=== PATIENT | female | born 1995 | race Hispanic/Latino ===

== ENCOUNTER 2023-03-22 23:40 | Emergency (ER) | payer MEDICAID ==
[~2023-03-22] VITALS: Ht 152.4 cm; Wt 83.0 kg
[2023-03-23] MEDS ORDERED: SOLU-MEDROL 125MG VIAL IM ONE (02:00)
[2023-03-23] MEDS ORDERED: DiphenhydrAMINE HCL 50 MG/ML VIAL IM ONE (02:00)
[2023-03-23] MEDS ORDERED: DIPH50 PO (02:04)
[2023-03-23] MEDS ORDERED: PRED20TA3 PO (02:04)
[2023-03-23 02:08] VITALS: BP 125/65
== END 2023-03-23 02:19 | disposition home or self-care (01) ==
LOC: EDH 23:40
DX: L25.9 Unspecified contact dermatitis, unspecified cause (principal); R51.9 Headache, unspecified
CPT/HCPCS: 99284; 96372 ×2; J1200; J2930